=== PATIENT | male | born 1965 | race African-American/Black ===

== ENCOUNTER 2016-12-15 12:55 | Emergency (ER) | payer OTHER | END 2016-12-15 16:00 | disposition home or self-care (01) | LOC: ER 12:55 | DX: S86.912A Strain of unspecified muscle(s) and tendon(s) at lower leg level, left leg, initial encounter (principal); Z88.1 Allergy status to other antibiotic agents; X58.XXXA Exposure to other specified factors, initial encounter | CPT/HCPCS: 73560-LT; 99283 ==